=== PATIENT | female | born 1935 | race Hispanic/Latino ===

== ENCOUNTER 2018-09-20 12:19 | Inpatient (IN) | payer MEDICARE, OTHER ==
[~2018-09-20] VITALS: Ht 160 cm; Wt 70.8 kg
[2018-09-20] MEDS ORDERED: ALBUTEROL SULF 0.083% NEB SOLN 3 ML NEB NEB STA (12:33)
[2018-09-20] MEDS ORDERED: IPRATROPIUM BROMIDE 0.02% 2.5 ML NEB NEB STA (12:33)
[2018-09-20] MEDS ORDERED: METHYLPREDNISOLONE SOD SUCC 125 MG/2ML VIAL IV STA (12:33)
--- NOTE | 2018-09-20 13:24 | Diagnostic Imaging Report ---
EXAM: XR CHEST 2 VIEWS DATE: 09/20/2018 12:31 PM INDICATION: Shortness of breath COMPARISON: None FINDINGS: Lines and Tubes: None Heart and Mediastinum: No acute cardiomediastinal findings. Aortic vascular calcifications. Lungs and Pleura: Bibasilar opacities with small effusions. Interstitial prominence. Bones and Soft Tissues: No acute findings. IMPRESSION: 1. Mild volume overload with small effusions. 2. Superimposed basilar atelectasis, with pneumonia not excluded. Signed by: Dr. Jermaine Bautista MD on 09/20/2018 1:21 PM
[2018-09-20 14:45] LABS: BASOPHILS % 0.2 % (0.0-1.0); EOSINOPHILS # (AUTO) 0.1 (0.0-0.4); EOSINOPHILS % 2.2 % (0.0-6.0); HEMATOCRIT 33.3 % (34.2-44.1); HEMOGLOBIN 10.5 g/dL (12.0-16.0); LYMPHOCYTES # (AUTO) 0.7 (1.0-3.2); LYMPHOCYTES % 15.9 % (18.0-39.1); MEAN CORPUSCULAR HEMOGLOBIN 30.1 pg (28-32); MEAN CORPUSCULAR HGB CONC 31.5 g/dL (31-35); MEAN CORPUSCULAR VOLUME 95.4 fL (81-99); MONOCYTES # (AUTO) 0.4 (0.2-0.8); MONOCYTES % 9.7 % (4.4-11.3); NEUTROPHILS % 71.8 % (38.7-80.0); PLATELET COUNT 77 x10e3/uL (140-360); RED BLOOD COUNT 3.49 x10e6/uL (3.6-5.1); RED CELL DISTRIBUTION WIDTH 13.2 % (11.7-14.4)
[2018-09-20 15:06] LABS: ALANINE AMINOTRANSFERASE 16 IU/L (0-55); ALBUMIN 3.5 g/dL (3.5-5.0); ALBUMIN/GLOBULIN RATIO 1.1 (0.8-2.0); ALKALINE PHOSPHATASE 90 IU/L (40-150); ANION GAP 13.1 mmol/L (8-16); BLOOD UREA NITROGEN 8 mg/dL (7-26); BUN/CREATININE RATIO 9 (6-25); CALCIUM 9.4 mg/dL (8.4-10.2); CARBON DIOXIDE 30 mmol/L (22-29); CHLORIDE 101 mmol/L (98-107); CREATINE KINASE 44 IU/L (29-168); CREATININE, SERUM 0.89 mg/dL (0.57-1.11); EST GLOMERULAR FILTRATION RATE > 60 ML/MIN (60-); GLUCOSE 107 mg/dL (74-118); LIPASE 15 U/L (8-78); POTASSIUM 4.1 mmol/L (3.5-5.1); SODIUM 140 mmol/L (136-145)
[2018-09-20 15:39] LABS: INR 1.08
[2018-09-20 15:40] LABS: PARTIAL THROMBOPLASTIN TIME 27.9 seconds (23.8-35.5)
[2018-09-20 16:33] LABS: CLARITY,URINE CLEAR (CLEAR); COLOR,URINE YELLOW (YELLOW)
[2018-09-20 16:34] LABS: BILIRUBIN,URINE NEGATIVE (NEGATIVE); KETONES,URINE NEGATIVE (NEGATIVE); LEUKOCYTE ESTERASE ,URINE 1+ (NEGATIVE); NITRITE,URINE NEGATIVE (NEGATIVE); PROTEIN,URINE DIPSTICK NEGATIVE (NEGATIVE); URINE UROBILINOGEN 0.2 mg/dL (0.2 - 1)
[2018-09-20] MEDS ORDERED: FUROSEMIDE INJ 10 MG/ML 4 ML VIAL IV ONE (16:45)
[2018-09-20 16:56] LABS: EPITHELIAL CELLS,URINE MANY /LPF
[2018-09-20] MEDS ORDERED: SODIUM CHLORIDE FLUSH 10 ML SYR INJ PRN (17:00)
[2018-09-20 17:04] LABS: RBC,URINE 0-5 /HPF (0-5); TRANSITIONAL EPI CELLS,URINE MODERATE; WBC,URINE (MAN) 21-50 /HPF (0-5)
[2018-09-20 17:07] LABS: BACTERIA,URINE RARE /HPF
--- NOTE | 2018-09-20 17:11 | NUR ---
PT/FAMILY UPDATED ON PENDING ADMIT TO HOSPITAL. DINNER TRAY ORDERED FOR THIS PATIENT
--- NOTE | 2018-09-20 18:11 | NUR ---
REPORTED OFF TO MILLI CARMEN FOR CONTINUITY OF CARE
[2018-09-20 18:16] VITALS: BP 167/73
[2018-09-20 18:20] VITALS: BP 157/84
--- OUTSIDE RECORDS SUMMARY | 2018-09-20 18:42 | XMS REPORT ---
Author Author [facility] Address Unknown Phone Unavailable Care Team Providers Care End Polisher Name Role Phone Andre KNAPP Unavailable Unavailable Problems This patient has no known problems. Allergies, Adverse Reactions, Alerts This patient has no known allergies or adverse reactions. Medications This patient has no known medications. Results Test Description Test Time Test Comments Text Results Atomic Results Result Comments CHEST 2 VIEWS 2018-09-20 13:20:00 [place] [id number] Patient Name: JEN RICHARDS MR #: [id number] : 1935 Age/Sex: 82/F Req #: [id number] Adm Physician: Ordered by: JESUS SOLIS COARSE WIRE DRAWER Report #: [id number] Location: ER Room/Bed: Procedure: [id number] DX/CHEST 2 VIEWS Exam Date: 09/20/18 Exam Time: 1300 REPORT STATUS: Signed EXAM: XR CHEST 2 VIEWS DATE: 09/20/2018 12:31 PM INDICATION: Shortness of breath COMPARISON: None FINDINGS: Lines and Tubes: None Heart and Mediastinum: No acute cardiomediastinal findings. Aortic vascular calcifications. Lungs and Pleura: Bibasilar opacities with small effusions. Interstitial prominence. Bones and Soft Tissues: No acute findings. IMPRESSION: 1. Mild volume overload with small effusion s. 2. Superimposed basilar atelectasis, with pneumonia not excluded. Signed by: Dr. Jermaine Bautista MD on 09/20/2018 1:21 PM Dictated By: JERMAINE BAUTISTA MD 1321 Transcribed By: LUIS on 09/20/18 1321 COPY TO: JESUS SOLIS NP
--- NOTE | 2018-09-20 19:21 | NUR ---
PT TO BE ADMITTED TO [facility] 209. PULSE OX/NO TELE
[2018-09-20 20:00] VITALS: BP 169/71
--- NOTE | 2018-09-20 20:00 | NUR ---
RECEIVED PT FROM ER VIA STRETCHER. AAOX3. ABLE TO AMB WITH STAND BY ASSIST TO BEDSIDE COMMODE. NO RESP DISTRESS. ON N/C 2L WITH CONTINUOS PULSE OX 98%. DENIES PAIN AT THIS TIME. HAS MULTIPLY BRUISING TO BOTH UPPER EXT. DENIES FALLS. ORIENTED TO ROOM. CALL LIGHT WITHIN REACH AND INSTRUCTED TO CALL FOR ASSISTANCE. BED ALARM ON.
[2018-09-20 20:42] VITALS: BP 169/71
[2018-09-20] MEDS ORDERED: PANTOPRAZOLE SO40 MG PO (22:19)
[2018-09-20] MEDS ORDERED: POTASSIUM CHLO10 ME1 PO (22:19)
[2018-09-20] MEDS ORDERED: CARDIZEM60 MG (22:19)
[2018-09-20] MEDS ORDERED: ADVAIR 250-501 EACH (22:19)
[2018-09-20] MEDS ORDERED: COMBIVENT RESPIM4 GM IH (22:19)
[2018-09-20] MEDS ORDERED: LEVOTHYROXINE50 MCG PO (22:28)
[2018-09-20] MEDS ORDERED: FUROSEMIDE20 MG (22:28)
[2018-09-20] MEDS ORDERED: CARVEDILOL12.5 MG PO (22:28)
[2018-09-20 23:17] VITALS: BP 169/71
[2018-09-21] VITALS (9 sets, daily range): BP systolic 147–181; BP diastolic 61–93
--- NOTE | 2018-09-21 05:00 | NUR ---
ELEVATED BP. NOTIFIED.
[2018-09-21] MEDS ORDERED: ALBUTEROL/IPRATROPIUM 3 ML NEB NEB PRN (05:15)
[2018-09-21 05:49] LABS: CREATINE KINASE 52 IU/L (29-168)
[2018-09-21] MEDS ORDERED: HYDRALAZINE HCL 20 MG/ML VIAL IV PRN (06:30)
[2018-09-21] MEDS: LEVOTHYROXINE SODIUM 50 MCG TAB PO SCH (06:34)
[2018-09-21] MEDS: CEFTRIAXONE SOD 1 GM VIAL IV SCH (06:34)
[2018-09-21] MEDS: NAPROXEN 250 MG TAB PO PRN (06:35)
[2018-09-21] MEDS: ALBUTEROL/IPRATROPIUM 3 ML NEB NEB SCH ×5 (07:00→23:15)
[2018-09-21] MEDS: SALMETEROL/FLUTICASONE 250/50 INH SCH ×2 (07:00→19:55)
--- NOTE | 2018-09-21 07:10 | NUR ---
RCD PT AT BED PT IS ALERT AND ORIENTED RESTING ON BED NO SIGNS OF ANY DISTRESS NOTED IV PATENT BED LOW AND LOCKED CALL LIGHT IN REACH
[2018-09-21] MEDS: PANTOPRAZOLE SOD 40 MG TABEC PO SCH (09:00)
[2018-09-21] MEDS: CARVEDILOL 12.5 MG TAB PO SCH ×2 (09:00→17:00)
[2018-09-21] MEDS: POTASSIUM CHLORIDE 10MEQ EA PO SCH (09:00)
[2018-09-21] MEDS: FUROSEMIDE INJ 10 MG/ML 4 ML VIAL IV SCH (09:00)
--- NOTE | 2018-09-21 12:53 | NUR ---
Entry Level Staff Accountant to bedside to discuss plan of care with patient/family. CM/SW role and care transitions discussed. Anticipated discharge plan discussed along with duration of care. CM/SW discussed patients right to make decisions in care. CM/SW work hours given. Patient lives: with granddaughter Lianne Admit/Transfer: thru ED, from home POA/Emergency contact: Lianne Ward [phone] Current/Previous Home Health: none PCP/Follow-up Care: Dr. Galindo Current/Previous DME: home oxygen, has walker and wheelchair Other Services: none; but inquiring about provider services. CM provided pamphlets from provider services and gave senior resource guide Employment Status: retired Areas of Concerns: none Referral Needs: none Education Needs: none IMM/ROSARIO given and signed (if applicable): none Goal for discharge: Home with family; family will provide transportation CM/SW left business card at the bedside with contact information. Name and number was also written on the patients whiteboard. Patient verbalized understanding of discussion. CM will follow-up with ongoing discharge and transition of care needs.
[2018-09-21 13:44] LABS: CREATINE KINASE 72 IU/L (29-168)
[2018-09-21] MEDS ORDERED: METHYLPREDNISOLONE SOD SUCC 40 MG/ML VIAL IV SCH (14:00)
[2018-09-21] MEDS: DOXYCYCLINE HYCLATE TABLET 100 MG TAB PO SCH (15:45)
[2018-09-21 16:20] LABS: FREE THYROXINE INDEX 3.8624 (1.4-3.8); THYROID STIMULATING HORMONE 0.304 uIU/mL (0.350-4.940)
--- NOTE | 2018-09-21 16:23 | Consultation ---
DATE OF CONSULTATION: September 21, 2018 PULMONARY CONSULTATION An 82-year-old woman approximately 5 days prior to admission with cough productive of purulent sputum. Swelling of the lower extremities, progressive shortness of breath despite supplemental oxygen, and worse at night. Usually, she is able to walk around the house by herself, but in the last few days. She has a history of severe COPD and emphysema. She has oxygen at home. ALLERGIES: THERE IS NO KNOWN ALLERGIES. She smoked a pack a day for 60 years. Quit 5 years ago. 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 Born in [place]. FAMILY HISTORY: Positive for diabetes and cancer of stomach and ovary. MEDICATIONS: Her medications have included Lasix, potassium, Coreg, Levoxyl, Protonix, Combivent, Spiriva, and Advair. She has had T and A and vocal cord polyp removed. PHYSICAL EXAMINATION GENERAL: This is a well-developed white female looking her stated age. HEENT: Head is normocephalic and atraumatic. Eyes: Extraocular movements intact. VITALS: Temperature 98.2, blood pressure 168/71, respirations 18. CHEST: Wheezing in all lung gallegos. Tenderness of left chest and lower 11th rib. HEART: Regular rhythm. ABDOMEN: Nontender. EXTREMITIES: Edematous. IMPRESSION 1. Possible cough fracture. 2. Congestive heart failure. 3. Acute exacerbation of severe chronic obstructive pulmonary disease. Code status was discussed. PLAN: Cautious diuresis. Moderate dose of corticosteroids. Empiric antibiotics. Chest x-ray suggestive of pneumonia, as well as congestive heart failure with bilateral small effusions and infiltrates. Thank you for this kind referral. Job#: [id number] LIZ MUNGUIA
--- NOTE | 2018-09-21 17:46 | NUR ---
PATIENT REFUSED ABG
--- NOTE | 2018-09-21 17:50 | NUR ---
PT REQUESTED ASPIRIN FOR PAIN PAGED DR MERINO TO GET THE ORDERS BECAUSE PT REQUESTED WHEN HE CAME TO SEE THE PT
--- NOTE | 2018-09-21 18:11 | NUR ---
DR MERINO RETURNED CALL AND GOT THE ORDERS
[2018-09-21] MEDS: ASPIRIN 325 MG TAB PO PRN (18:29)
--- NOTE | 2018-09-21 18:39 | NUR ---
PT RESTING ON BED BED SIDE REPORT GIVEN TO ONCOMING NURSE
[2018-09-21] MEDS ORDERED: SALINE 0.65% NAS SOLN 1 SPRAY BTL PRN (20:45)
[2018-09-21] MEDS: HEPARIN SOD (PORCINE) 5,000 UNIT/ML VIAL SC SCH (21:00)
[2018-09-22] VITALS (8 sets, daily range): BP systolic 145–161; BP diastolic 71–86
[2018-09-22] MEDS: ALBUTEROL/IPRATROPIUM 3 ML NEB NEB SCH ×6 (03:00→23:30)
[2018-09-22] MEDS: CEFTRIAXONE SOD 1 GM VIAL IV SCH (05:45)
[2018-09-22] MEDS: LEVOTHYROXINE SODIUM 50 MCG TAB PO SCH (05:45)
[2018-09-22] MEDS: SALMETEROL/FLUTICASONE 250/50 INH SCH ×2 (07:16→19:55)
[2018-09-22] MEDS ORDERED: METHYLPREDNISOLONE SOD SUCC 40 MG/ML VIAL IV SCH (08:00)
[2018-09-22] MEDS: NAPROXEN 250 MG TAB PO PRN ×2 (08:02→21:11)
[2018-09-22] MEDS: DOXYCYCLINE HYCLATE TABLET 100 MG TAB PO SCH (09:00)
[2018-09-22] MEDS: POTASSIUM CHLORIDE 10MEQ EA PO SCH (09:00)
[2018-09-22] MEDS: HEPARIN SOD (PORCINE) 5,000 UNIT/ML VIAL SC SCH ×2 (09:00→21:12)
[2018-09-22] MEDS: PANTOPRAZOLE SOD 40 MG TABEC PO SCH (09:00)
[2018-09-22] MEDS: CARVEDILOL 12.5 MG TAB PO SCH ×2 (09:00→16:55)
[2018-09-22] MEDS: FUROSEMIDE INJ 10 MG/ML 4 ML VIAL IV SCH (09:00)
--- NOTE | 2018-09-22 09:00 | NUR ---
The pt. comp/of pain in the right shoulder and was medicated with naproxen. Dr. Jimenez visited and new orders received and recorded.
--- NOTE | 2018-09-22 10:24 | Diagnostic Imaging Report ---
PROCEDURE:X-RAY RIGHT SHOULDER, COMPLETE COMPARISON:None. INDICATIONS:RIGHT SHOULDER PAIN FINDINGS: There are severe right glenohumeral joint degenerative changes with bone on bone contact. There are mild degenerative changes at the right glenohumeral joint. No evidence of fracture, malalignment, or soft tissue abnormality. 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 No acute radiographic abnormality. Dictated by: MORGAN ROCHA M.D. on 09/22/2018 at 10:34 Electronically approved by: MORGAN ROCHA M.D. on 09/22/2018 at 10:34
--- NOTE | 2018-09-22 19:25 | NUR ---
Received awake on bed, alert, not in distress, still complaining of pain to the right shoulder, Lidocaine patch in place. Call light within reached, advised to call for assistance when needed. Bed in low position and locked, bed alarm on, will continue to monitor
[2018-09-23] VITALS (8 sets, daily range): BP systolic 141–183; BP diastolic 63–99
[2018-09-23] MEDS: ALBUTEROL/IPRATROPIUM 3 ML NEB NEB SCH ×6 (03:00→23:00)
[2018-09-23] MEDS: LEVOTHYROXINE SODIUM 50 MCG TAB PO SCH (06:00)
[2018-09-23] MEDS: CEFTRIAXONE SOD 1 GM VIAL IV SCH (06:00)
[2018-09-23] MEDS: NAPROXEN 250 MG TAB PO PRN (06:25)
--- NOTE | 2018-09-23 07:15 | NUR ---
RCD PT AT BED PT IS ALERT AND ORIENTED RESTING ON BED NO SIGNS OF ANY DISTRESS NOTED IV PATENT FAMILY AT BED SIDE BED LOW AND LOCKED CALL LIGHT IN REACH
[2018-09-23] MEDS ORDERED: METHYLPREDNISOLONE SOD SUCC 40 MG/ML VIAL IV SCH (07:30)
[2018-09-23] MEDS: SALMETEROL/FLUTICASONE 250/50 INH SCH ×2 (07:58→19:44)
[2018-09-23] MEDS: HEPARIN SOD (PORCINE) 5,000 UNIT/ML VIAL SC SCH ×2 (09:00→21:10)
[2018-09-23] MEDS: PANTOPRAZOLE SOD 40 MG TABEC PO SCH (09:00)
[2018-09-23] MEDS: DOXYCYCLINE HYCLATE TABLET 100 MG TAB PO SCH (09:00)
[2018-09-23] MEDS: FUROSEMIDE INJ 10 MG/ML 4 ML VIAL IV SCH (09:00)
[2018-09-23] MEDS: CARVEDILOL 12.5 MG TAB PO SCH ×2 (09:00→17:00)
[2018-09-23] MEDS: POTASSIUM CHLORIDE 10MEQ EA PO SCH (09:00)
[2018-09-23] MEDS: LIDOCAINE 5% PATCH TP SCH (09:00)
[2018-09-23] MEDS: ASPIRIN 325 MG TAB PO PRN (16:30)
--- NOTE | 2018-09-23 18:41 | NUR ---
PT RESTING ON BED BED SIDE REPORT GIVEN TO ONCOMING NURSE
--- NOTE | 2018-09-23 19:28 | NUR ---
Patient received sitting up in bed. Family at bedside. AAO x 3. No complaints of pain. Patient on 2 L NC . Respirations even and non-labored. Bed locked and in lowest position. Bed rails up x 2. Patient instructed to call for assistance when needed. Call light within reach.
[2018-09-24] VITALS (8 sets, daily range): BP systolic 127–176; BP diastolic 59–89
[2018-09-24] MEDS: ALBUTEROL/IPRATROPIUM 3 ML NEB NEB SCH ×6 (03:00→23:17)
[2018-09-24 05:44] LABS: BASOPHILS % 0.1 % (0.0-1.0); HEMATOCRIT 34.2 % (34.2-44.1); HEMOGLOBIN 11.2 g/dL (12.0-16.0); LYMPHOCYTES # (AUTO) 0.6 (1.0-3.2); LYMPHOCYTES % 7.2 % (18.0-39.1); MEAN CORPUSCULAR HEMOGLOBIN 29.5 pg (28-32); MEAN CORPUSCULAR HGB CONC 32.7 g/dL (31-35); MONOCYTES % 11.7 % (4.4-11.3); NEUTROPHILS % 80.5 % (38.7-80.0); PLATELET COUNT 80 x10e3/uL (140-360); RED CELL DISTRIBUTION WIDTH 12.5 % (11.7-14.4)
[2018-09-24 06:12] LABS: ANION GAP 15.1 mmol/L (8-16); CALCIUM 8.5 mg/dL (8.4-10.2); CREATININE, SERUM 1.14 mg/dL (0.57-1.11); POTASSIUM 4.1 mmol/L (3.5-5.1)
[2018-09-24] MEDS: CEFTRIAXONE SOD 1 GM VIAL IV SCH (06:15)
[2018-09-24] MEDS: SALMETEROL/FLUTICASONE 250/50 INH SCH ×2 (07:00→19:34)
--- NOTE | 2018-09-24 07:02 | NUR ---
Received patient mid fowlers position, side rails upx2, call light within reach, family member at bedside. AAOX3 to time, person, place. Respirations even and unlabored. O2 2L NC. On continuous SPO2 92%. Instructed patient to use call light for assistance. Voiced understanding.
[2018-09-24] MEDS: LIDOCAINE 5% PATCH TP SCH (07:40)
[2018-09-24] MEDS: PANTOPRAZOLE SOD 40 MG TABEC PO SCH (07:40)
[2018-09-24] MEDS: LEVOTHYROXINE SODIUM 50 MCG TAB PO SCH (07:40)
[2018-09-24] MEDS: HEPARIN SOD (PORCINE) 5,000 UNIT/ML VIAL SC SCH ×2 (07:40→19:59)
[2018-09-24] MEDS: METHYLPREDNISOLONE SOD SUCC 40 MG/ML VIAL IV SCH (07:40)
[2018-09-24] MEDS: DOXYCYCLINE HYCLATE TABLET 100 MG TAB PO SCH (07:40)
[2018-09-24] MEDS: CARVEDILOL 12.5 MG TAB PO SCH ×2 (07:40→16:34)
[2018-09-24] MEDS: POTASSIUM CHLORIDE 10MEQ EA PO SCH (07:40)
[2018-09-24] MEDS: FUROSEMIDE INJ 10 MG/ML 4 ML VIAL IV SCH (07:40)
--- NOTE | 2018-09-24 18:29 | NUR ---
Resting in bed. No s/s of acute distress noted. Report to be given to oncoming nurse.
--- NOTE | 2018-09-24 19:25 | NUR ---
Received patient awake on bed, on semi fowlers position, on O2 support via nasal cannula at 2l, on continues pulse Ox, sat at 97%. Call light within reached, advised to call for assistance when needed. Bed alarm on, bed in low position and locked, will continue to monitor.
[2018-09-24] MEDS: NAPROXEN 250 MG TAB PO PRN (19:58)
[2018-09-25] VITALS (8 sets, daily range): BP systolic 132–162; BP diastolic 59–68
[2018-09-25] MEDS: NAPROXEN 250 MG TAB PO PRN (02:30)
[2018-09-25] MEDS: ALBUTEROL/IPRATROPIUM 3 ML NEB NEB SCH ×6 (03:08→23:00)
[2018-09-25] MEDS: CEFTRIAXONE SOD 1 GM VIAL IV SCH (06:02)
[2018-09-25] MEDS: TRAMADOL HCL 50 MG TAB PO PRN (06:04)
--- NOTE | 2018-09-25 07:00 | NUR ---
SHIFT REPORT RECEIVED FROM NIGHT RN. PT DENIES NEEDS AT THIS TIME.
[2018-09-25] MEDS: SALMETEROL/FLUTICASONE 250/50 INH SCH ×2 (07:37→19:10)
[2018-09-25] MEDS: FUROSEMIDE INJ 10 MG/ML 4 ML VIAL IV SCH (08:37)
[2018-09-25] MEDS: LEVOTHYROXINE SODIUM 50 MCG TAB PO SCH (08:37)
[2018-09-25] MEDS: METHYLPREDNISOLONE SOD SUCC 40 MG/ML VIAL IV SCH (08:37)
[2018-09-25] MEDS: LIDOCAINE 5% PATCH TP SCH (08:38)
[2018-09-25] MEDS: DOXYCYCLINE HYCLATE TABLET 100 MG TAB PO SCH (08:38)
[2018-09-25] MEDS: PANTOPRAZOLE SOD 40 MG TABEC PO SCH (08:38)
[2018-09-25] MEDS: POTASSIUM CHLORIDE 10MEQ EA PO SCH (08:39)
[2018-09-25] MEDS: CARVEDILOL 12.5 MG TAB PO SCH ×2 (08:40→16:38)
[2018-09-25] MEDS: HEPARIN SOD (PORCINE) 5,000 UNIT/ML VIAL SC SCH ×2 (08:42→21:00)
[2018-09-26] VITALS (7 sets, daily range): BP systolic 128–161; BP diastolic 59–69
[2018-09-26] MEDS: TRAMADOL HCL 50 MG TAB PO PRN (02:35)
[2018-09-26] MEDS: ALBUTEROL/IPRATROPIUM 3 ML NEB NEB SCH ×5 (02:50→19:20)
[2018-09-26] MEDS: LEVOTHYROXINE SODIUM 25 MCG TABLET PO SCH (06:07)
[2018-09-26] MEDS: CEFTRIAXONE SOD 1 GM/NS 50 ML 50 ML IV SCH (06:07)
--- NOTE | 2018-09-26 07:00 | NUR ---
SHIFT REPORT RECEIVED FROM NIGHT RN. PT DENIES NEEDS AT THIS TIME.
[2018-09-26] MEDS: FUROSEMIDE INJ 10 MG/ML 4 ML VIAL IV SCH (08:40)
[2018-09-26] MEDS: SALMETEROL/FLUTICASONE 250/50 INH SCH ×2 (08:40→08:46)
[2018-09-26] MEDS: METHYLPREDNISOLONE SOD SUCC 40 MG/ML VIAL IV SCH (08:40)
[2018-09-26] MEDS: LIDOCAINE 5% PATCH TP SCH (08:41)
[2018-09-26] MEDS: CARVEDILOL 12.5 MG TAB PO SCH ×2 (08:41→17:39)
[2018-09-26] MEDS: PANTOPRAZOLE SOD 40 MG TABEC PO SCH (08:41)
[2018-09-26] MEDS: POTASSIUM CHLORIDE 10MEQ EA PO SCH (08:41)
[2018-09-26] MEDS: DOXYCYCLINE HYCLATE TABLET 100 MG TAB PO SCH (08:41)
[2018-09-26] MEDS: HEPARIN SOD (PORCINE) 5,000 UNIT/ML VIAL SC SCH ×2 (08:43→20:45)
[2018-09-26] MEDS ORDERED: ONDANSETRON HCL INJ 2 MG/ML VIAL IV PRN (11:30)
--- NOTE | 2018-09-26 12:30 | NUR ---
PT NAUSEATED. RECEIVED ORDER FOR ZOFRAN. PT IS STILL REFUSING TO WORK WITH PT.
--- NOTE | 2018-09-26 18:13 | NUR ---
Nutrition Screen Note RD Recommendation for Physician: -Continue cardiac diet as ordered -RD educated on fluids restriction 09/26 Plan of Care: RD following, monitoring for tolerance and adequacy Nutrition reason for involvement: LOS Primary Diagnose(s): CHF, dyspnea, acute exacerbation of COPD PMH: severe COPD and emphysema Ht: 63in Wt: 151.13lb BMI: kg/m2 IBW: 115lb RD Assessment: (09/26) Chart reviewed. Labs and meds reviewed. 82 yo F, who is admitted for cough. During my visit, pt reports not eating good due to taste preferences. Pt doesnt like hospital foods but RN recorded ~75-100% PO intake. Family also has been bringing her foods from home. Pt reports of some nausea and Zofran was given. No other GI complains noted. LBM 09/25. Pt denies any chewing or swallowing difficulty. Currently on 1.5 L fluids restriction. Educated pt on fluids restriction. Will continue to monitor and follow. Current Diet: cardiac diet Malnutrition Evaluation (09/26) The patient does not meet criteria for a specified degree of malnutrition at this time. Will re-evaluate at follow-up as appropriate. Diet Education Needs Assessment: Diet education indicated, pt is agreeable. Learner(s): pt Barriers: n/a Cultural/Language Modifications: n/a Readiness: ready Method: explanations, handout Topics: Fluid restriction Understanding/Compliance: Understood. All questions have been answered. Nutrition Care Level: low
[2018-09-27] VITALS (8 sets, daily range): BP systolic 150–177; BP diastolic 65–98
[2018-09-27] MEDS: ALBUTEROL/IPRATROPIUM 3 ML NEB NEB SCH ×7 (00:50→21:15)
[2018-09-27] MEDS: LEVOTHYROXINE SODIUM 25 MCG TABLET PO SCH (05:56)
[2018-09-27] MEDS: CEFTRIAXONE SOD 1 GM/NS 50 ML 50 ML IV SCH (05:56)
[2018-09-27] MEDS: SALMETEROL/FLUTICASONE 250/50 INH SCH ×2 (07:00→21:15)
[2018-09-27] MEDS: CARVEDILOL 12.5 MG TAB PO SCH ×2 (09:59→16:33)
[2018-09-27] MEDS: METHYLPREDNISOLONE SOD SUCC 40 MG/ML VIAL IV SCH (09:59)
[2018-09-27] MEDS: FUROSEMIDE INJ 10 MG/ML 4 ML VIAL IV SCH (09:59)
[2018-09-27] MEDS: HEPARIN SOD (PORCINE) 5,000 UNIT/ML VIAL SC SCH ×2 (10:00→22:30)
[2018-09-27] MEDS: POTASSIUM CHLORIDE 10MEQ EA PO SCH (10:03)
[2018-09-27] MEDS: DOXYCYCLINE HYCLATE TABLET 100 MG TAB PO SCH (10:04)
[2018-09-27] MEDS: PANTOPRAZOLE SOD 40 MG TABEC PO SCH (10:04)
[2018-09-27] MEDS: LIDOCAINE 5% PATCH TP SCH (10:04)
--- NOTE | 2018-09-27 19:20 | NUR ---
Received awake on bed, not in distress, call light within reached, advised to call for assistance when needed, patient verbalized understanding. Patient is positive for pseudomonas of the sputum, no need for Isolation per solder deposit operator per dayshift. Will continue to monitor
--- NOTE | 2018-09-27 20:15 | NUR ---
Dr. Cleveland seen patient, informed of positive pseudomonas in the sputum with orders
[2018-09-27] MEDS ORDERED: SODIUM CHLORIDE 0.9% 250ML 250 ML ONE (21:56)
[2018-09-27] MEDS ORDERED: CEFEPIME HCL 2 GM VIAL IV SCH (22:00)
[2018-09-27] MEDS: TRAMADOL HCL 50 MG TAB PO PRN (22:30)
[2018-09-27] MEDS: CEFEPIME 2 GM/NS 0.9% 100 ML 100 ML IV SCH (22:30)
[2018-09-28] VITALS (7 sets, daily range): BP systolic 97–137; BP diastolic 56–69
[2018-09-28] MEDS: ALBUTEROL/IPRATROPIUM 3 ML NEB NEB SCH ×5 (03:00→20:08)
[2018-09-28] MEDS: LEVOTHYROXINE SODIUM 25 MCG TABLET PO SCH (05:45)
[2018-09-28 06:28] LABS: EOSINOPHILS % 0.3 % (0.0-6.0); HEMATOCRIT 33.4 % (34.2-44.1); HEMOGLOBIN 10.9 g/dL (12.0-16.0); LYMPHOCYTES # (AUTO) 0.9 (1.0-3.2); LYMPHOCYTES % 12.4 % (18.0-39.1); MEAN CORPUSCULAR HEMOGLOBIN 29.6 pg (28-32); MEAN CORPUSCULAR HGB CONC 32.6 g/dL (31-35); MEAN CORPUSCULAR VOLUME 90.8 fL (81-99); MONOCYTES # (AUTO) 0.8 (0.2-0.8); MONOCYTES % 11.7 % (4.4-11.3); NEUTROPHILS # (AUTO) 5.1 (2.1-6.9); NEUTROPHILS % 74.6 % (38.7-80.0); PLATELET COUNT 109 x10e3/uL (140-360); RED BLOOD COUNT 3.68 x10e6/uL (3.6-5.1); RED CELL DISTRIBUTION WIDTH 12.4 % (11.7-14.4)
[2018-09-28 06:53] LABS: ALBUMIN 3.1 g/dL (3.5-5.0); ALBUMIN/GLOBULIN RATIO 1.2 (0.8-2.0); ANION GAP 14.8 mmol/L (8-16); CALCIUM 8.8 mg/dL (8.4-10.2); CREATININE, SERUM 1.07 mg/dL (0.57-1.11); POTASSIUM 4.8 mmol/L (3.5-5.1)
[2018-09-28] MEDS: SALMETEROL/FLUTICASONE 250/50 INH SCH (07:30)
[2018-09-28] MEDS: METHYLPREDNISOLONE SOD SUCC 40 MG/ML VIAL IV SCH (09:25)
[2018-09-28] MEDS: FUROSEMIDE INJ 10 MG/ML 4 ML VIAL IV SCH (09:25)
[2018-09-28] MEDS: POTASSIUM CHLORIDE 10MEQ EA PO SCH (09:26)
[2018-09-28] MEDS: LIDOCAINE 5% PATCH TP SCH (09:26)
[2018-09-28] MEDS: PANTOPRAZOLE SOD 40 MG TABEC PO SCH (09:26)
[2018-09-28] MEDS: CARVEDILOL 12.5 MG TAB PO SCH ×2 (09:26→17:15)
[2018-09-28] MEDS: DOXYCYCLINE HYCLATE TABLET 100 MG TAB PO SCH (09:26)
[2018-09-28] MEDS: HEPARIN SOD (PORCINE) 5,000 UNIT/ML VIAL SC SCH (10:00)
[2018-09-28] MEDS ORDERED: ALBUTEROL/IPRATROPIUM 3 ML NEB NEB SCH (12:00)
--- NOTE | 2018-09-28 15:30 | NUR ---
Spoke with Dr. Galindo along with CM Director regarding plan of care. He stated he will discuss LTAC vs SNF with pt in AM when he rounds.
--- NOTE | 2018-09-28 19:25 | NUR ---
Received patient awake on bed, on O2 at 2L via NC, not in distress, no complaints of pain at this time. Call light within reached, advised to call for assistance as needed. Will continue to monitor
[2018-09-28] MEDS: CEFEPIME 2 GM/NS 0.9% 100 ML 100 ML IV SCH (20:54)
[2018-09-28] MEDS: TRAMADOL HCL 50 MG TAB PO PRN (20:54)
[2018-09-29] VITALS (9 sets, daily range): BP systolic 117–140; BP diastolic 61–71
[2018-09-29] MEDS: SALMETEROL/FLUTICASONE 250/50 INH SCH ×3 (00:45→19:00)
[2018-09-29] MEDS: ALBUTEROL/IPRATROPIUM 3 ML NEB NEB SCH ×4 (00:45→19:00)
[2018-09-29] MEDS: LEVOTHYROXINE SODIUM 25 MCG TABLET PO SCH (05:47)
[2018-09-29] MEDS: TRAMADOL HCL 50 MG TAB PO PRN (05:47)
[2018-09-29] MEDS: CARVEDILOL 12.5 MG TAB PO SCH ×2 (08:15→17:00)
[2018-09-29] MEDS: PANTOPRAZOLE SOD 40 MG TABEC PO SCH (08:15)
[2018-09-29] MEDS: POTASSIUM CHLORIDE 10MEQ EA PO SCH (08:15)
[2018-09-29] MEDS: METHYLPREDNISOLONE SOD SUCC 40 MG/ML VIAL IV SCH (08:15)
[2018-09-29] MEDS: FUROSEMIDE 20 MG TAB PO SCH (08:15)
[2018-09-29 09:57] LABS: BASOPHILS % 0.2 % (0.0-1.0); EOSINOPHILS # (AUTO) 0.1 (0.0-0.4); HEMATOCRIT 31.6 % (34.2-44.1); HEMOGLOBIN 10.2 g/dL (12.0-16.0); LYMPHOCYTES # (AUTO) 0.9 (1.0-3.2); LYMPHOCYTES % 15.3 % (18.0-39.1); MEAN CORPUSCULAR HEMOGLOBIN 29.6 pg (28-32); MEAN CORPUSCULAR HGB CONC 32.3 g/dL (31-35); MEAN CORPUSCULAR VOLUME 91.6 fL (81-99); MONOCYTES # (AUTO) 0.8 (0.2-0.8); MONOCYTES % 12.7 % (4.4-11.3); NEUTROPHILS # (AUTO) 4.1 (2.1-6.9); NEUTROPHILS % 69.4 % (38.7-80.0); PLATELET COUNT 85 x10e3/uL (140-360); RED BLOOD COUNT 3.45 x10e6/uL (3.6-5.1); RED CELL DISTRIBUTION WIDTH 12.4 % (11.7-14.4)
[2018-09-29] MEDS: LIDOCAINE 5% PATCH TP SCH (10:00)
[2018-09-29 10:25] LABS: ALBUMIN 2.7 g/dL (3.5-5.0); ALBUMIN/GLOBULIN RATIO 1.2 (0.8-2.0); ANION GAP 13.2 mmol/L (8-16); CALCIUM 8.8 mg/dL (8.4-10.2); CREATININE, SERUM 1.04 mg/dL (0.57-1.11); POTASSIUM 4.2 mmol/L (3.5-5.1)
--- NOTE | 2018-09-29 16:00 | NUR ---
Dr. Cristofer husaining
--- NOTE | 2018-09-29 16:13 | NUR ---
SPOKE WITH PATIENT ABOUT SNF CHOICE. SHE STATES SHE WANTS TO GO TO THE ONE IN HER NEIGHBORHOOD, DOWN [address] FROM THE POST OFFICE AND BY THE [facility]IN[facility]. CALLED [facility] [phone] WAS TOLD ADMISSION TEAM HAS ALREADY LEFT TODAY AND WILL NOT RETURN UNTIL TUESDAY. WAS TOLD FAX CLINICALS ON TUESDAY TO [phone].
--- NOTE | 2018-09-29 17:49 | NUR ---
hr 50s; coreg not administered
[2018-09-29] MEDS: CEFEPIME 2 GM/NS 0.9% 100 ML 100 ML IV SCH (21:41)
[2018-09-30] VITALS (7 sets, daily range): BP systolic 86–156; BP diastolic 53–70
[2018-09-30] MEDS: ALBUTEROL/IPRATROPIUM 3 ML NEB NEB SCH ×4 (01:00→19:25)
[2018-09-30] MEDS: LEVOTHYROXINE SODIUM 25 MCG TABLET PO SCH (06:01)
[2018-09-30] MEDS: SALMETEROL/FLUTICASONE 250/50 INH SCH ×2 (07:10→19:25)
--- NOTE | 2018-09-30 08:25 | Progress Note ---
DATE: September 30, 2018 SUBJECTIVE: Patient is here for acute exacerbation of COPD and congestive heart failure. Patient is currently doing well, short of breath but not more than usual, and is getting respiratory support with nasal cannula. OBJECTIVE VITAL SIGNS: Temperature is 97.4, blood pressure is 156/70, respirations of 18, and pulse of 78. HEENT: Normocephalic, atraumatic. Pupils are reactive to light and accommodation. CVS: S1, S2 normal. Regular rate and rhythm. LUNGS: Positive for bilateral crackles in the lower bases. Positive for some scattered inspiratory wheezes. EXTREMITIES: No clubbing. Positive for trace edema. LABORATORY VALUES: On 09/29; hemoglobin of 10.2 and hematocrit of 31.6. Chemistry; sodium 125, potassium is 4.2, BUN is 22, and creatinine of 1.04. Urine does show urine rbc's and wbc's. MICROBIOLOGY VALUES: Blood cultures have been negative. Gram-stain sputum grew Pseudomonas aeruginosa and urine culture has been negative too. ASSESSMENT 1. Acute exacerbation of chronic obstructive pulmonary disease, questionable pneumonia. 2. Pneumonia, community-acquired. 3. Hypertension. 4. Hyperlipidemia. 5. Congestive heart failure. 6. Hyponatremia, patient probably with syndrome of inappropriate antidiuretic syndrome. PLAN: Plan is to continue with Lasix, the patient is getting 20 mg daily. The patient is on albuterol and Atrovent treatment. The patient also is on prednisone 20 mg daily for her COPD. 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 We will go ahead and hep-lock the IV and also give her some salt tablets. Further recommendations per clinical course will continue to monitor the patient along with the consultants. Job#: [id number] PSO
[2018-09-30] MEDS: FUROSEMIDE 20 MG TAB PO SCH (09:12)
[2018-09-30] MEDS: PANTOPRAZOLE SOD 40 MG TABEC PO SCH (09:12)
[2018-09-30] MEDS: POTASSIUM CHLORIDE 10MEQ EA PO SCH (09:12)
[2018-09-30] MEDS: LIDOCAINE 5% PATCH TP SCH (09:12)
[2018-09-30] MEDS: CARVEDILOL 12.5 MG TAB PO SCH ×2 (09:12→17:09)
[2018-09-30] MEDS: PREDNISONE 20 MG TAB PO SCH (09:13)
--- NOTE | 2018-09-30 20:22 | NUR ---
Received patient in bed, introduced self to patient, patient is alert and oriented, patient denies any pain at this time, safety and fall precautions maintained as per hospital protocol: bed in lowest position and locked, needed items beside bed and fide villalobos placed within patient reach, patient instructed to use it to call nurses for any assistance needed, patient verbalized understanding. patient is currently stable will continue to monitor.
[2018-09-30] MEDS: CEFEPIME 2 GM/NS 0.9% 100 ML 100 ML IV SCH (22:16)
[2018-10-01] VITALS (7 sets, daily range): BP systolic 117–162; BP diastolic 57–86
[2018-10-01] MEDS: ALBUTEROL/IPRATROPIUM 3 ML NEB NEB SCH ×4 (00:15→20:00)
[2018-10-01 05:30] LABS: BASOPHILS % 0.2 % (0.0-1.0); EOSINOPHILS % 0.3 % (0.0-6.0); HEMATOCRIT 31.7 % (34.2-44.1); HEMOGLOBIN 10.4 g/dL (12.0-16.0); LYMPHOCYTES % 14.7 % (18.0-39.1); MEAN CORPUSCULAR HEMOGLOBIN 29.8 pg (28-32); MEAN CORPUSCULAR HGB CONC 32.8 g/dL (31-35); MEAN CORPUSCULAR VOLUME 90.8 fL (81-99); MONOCYTES % 15.1 % (4.4-11.3); NEUTROPHILS # (AUTO) 4.4 (2.1-6.9); NEUTROPHILS % 67.9 % (38.7-80.0); PLATELET COUNT 87 x10e3/uL (140-360); RED BLOOD COUNT 3.49 x10e6/uL (3.6-5.1); RED CELL DISTRIBUTION WIDTH 12.5 % (11.7-14.4)
[2018-10-01 05:47] LABS: ANION GAP 11.8 mmol/L (8-16); CREATININE, SERUM 0.9 mg/dL (0.57-1.11); POTASSIUM 4.8 mmol/L (3.5-5.1)
--- NOTE | 2018-10-01 06:45 | NUR ---
patient endorsed to next shift for continuity of care.
[2018-10-01] MEDS: LEVOTHYROXINE SODIUM 25 MCG TABLET PO SCH (07:04)
--- NOTE | 2018-10-01 07:21 | NUR ---
PATIENT IN BED RESTING WITH NO RESPIRATORY DISTRESS. O2 IN PLACE VIA N/C, BRUISES TO UPPER EXTREMITIES. DENIED PAIN AT THIS TIME, BED IN LOWER POSITION, CALL LIGHT AT REACH.
[2018-10-01] MEDS: SALMETEROL/FLUTICASONE 250/50 INH SCH ×2 (07:40→20:00)
--- NOTE | 2018-10-01 09:08 | Progress Note ---
DATE:October 01, 2018 SUBJECTIVE: Patient is here for acute COPD exacerbation and pneumonia. Patient currently with shortness of breath, on nasal cannula. Patient with no other complaints. No chest pain. No nausea, vomiting, or diarrhea. OBJECTIVE VITAL SIGNS: Temperature is 96.8, pulse of 84, respirations of 22, blood pressure is 136/59, pulse oximetry 100% on 4 liters of oxygen. HEENT: Normocephalic, atraumatic. Pupils are reactive to light and accommodation. CVS: S1, S2 normal. Distant heart sounds. LUNGS: Decreased air entry in all lung gallegos. Positive for few inspiratory wheezes. ABDOMEN: Nontender, nondistended. EXTREMITIES: No clubbing, no cyanosis, and no edema. MICROBIOLOGY: Grain stain on the sputum grew Pseudomonas aeruginosa. LABORATORY VALUES: Today's hemoglobin is 10.4, hematocrit of 31.7. Chemistries; sodium of 129 and potassium of 4.8. ASSESSMENT 1. Chronic obstructive pulmonary disease exacerbation. Continue with antibiotic. 2. Community-acquired pneumonia. We will continue with antibiotic and also, patient is on steroids. 3. Hypertension. Continue with antihypertensive. 4. Hyperlipidemia. Continue with lipid lowering agents. 5. Hyponatremia secondary to syndrome of inappropriate antidiuretic hormone secretion. Sodium is 129, this is her baseline. We will keep her on it and if needed, we will add sodium tablets to it. Further recommendations per clinical course. 1. Disposition. Patient is waiting a transfer to SNF and this will probably be done tomorrow. Job#: [id number] ARIANA
[2018-10-01] MEDS: CARVEDILOL 12.5 MG TAB PO SCH ×2 (09:26→17:43)
[2018-10-01] MEDS: POTASSIUM CHLORIDE 10MEQ EA PO SCH (09:26)
[2018-10-01] MEDS: PREDNISONE 20 MG TAB PO SCH (09:26)
[2018-10-01] MEDS: PANTOPRAZOLE SOD 40 MG TABEC PO SCH (09:26)
[2018-10-01] MEDS: LIDOCAINE 5% PATCH TP SCH (09:26)
[2018-10-01] MEDS: FUROSEMIDE 20 MG TAB PO SCH (09:26)
--- NOTE | 2018-10-01 11:43 | NUR ---
PATIENT SITTING UP IN BED EATING LUNCH, NO DIFFICULTY SWALLOWING OBSERVED. ASSISTED WITH CUP OPENING. BED IN LOWER POSITION, CALL LIGHT AT REACH. INSTRUCTED TO CALL FOR ASSISTANCE NEEDED.
--- NOTE | 2018-10-01 16:12 | NUR ---
WALKING ROUND MADE. PATIENT IN BED RESTING WITH EYES CLOSED, NO RESPIRATORY DISTRESS OBSERVED. CALL LIGHT AT EASY REACH.
--- NOTE | 2018-10-01 19:10 | NUR ---
BED SIDE REPORT GIVEN TO ON COMING NURSE. PATIENT RESTING IN BED WITH NO S/S OF DISCOMFORT.
--- NOTE | 2018-10-01 19:15 | NUR ---
Received patient in bed, introduced self to patient, patient is alert and oriented x3, patient denies any pain at this time, safety and fall precautions maintained as per hospital protocol: bed in lowest position and locked, needed items beside bed and call vilallobos placed within patient reach, patient instructed to use it to call nurses for any assistance needed, patient verbalized understanding. patient is currently stable will continue to monitor.
[2018-10-01] MEDS: CEFEPIME 2 GM/NS 0.9% 100 ML 100 ML IV SCH (21:08)
[2018-10-02] VITALS (7 sets, daily range): BP systolic 125–157; BP diastolic 51–69
--- NOTE | 2018-10-02 | NUR ---
Received patient in bed, introduced self to patient, patient is alert and oriented x3, patient denies any pain at this time, safety and fall precautions maintained as per hospital protocol: bed in lowest position and locked, needed items beside bed and fide villalobos placed within patient reach, patient instructed to use it to call nurses for any assistance needed, patient verbalized understanding. patient is currently stable will continue to monitor.
[2018-10-02] MEDS: ALBUTEROL/IPRATROPIUM 3 ML NEB NEB SCH ×3 (01:00→13:00)
--- NOTE | 2018-10-02 06:41 | NUR ---
Patient condition throughout the night was stable.
[2018-10-02] MEDS: LEVOTHYROXINE SODIUM 25 MCG TABLET PO SCH (06:42)
--- NOTE | 2018-10-02 07:00 | NUR ---
Bedside rounding completed. The patient is in bed watching TV. She has a nasal cannula with 2 liters of oxygen, she has a PIV, 24 g in her right AC that is fragile. The patient is receiving Merrem every 24 hours. She is being transferred to SNF today.
--- NOTE | 2018-10-02 07:00 | NUR ---
patient endorsed to next shift for continuity of care.
[2018-10-02 07:05] LABS: BASOPHILS % 0.2 % (0.0-1.0); EOSINOPHILS % 0.4 % (0.0-6.0); HEMATOCRIT 34.9 % (34.2-44.1); HEMOGLOBIN 11.4 g/dL (12.0-16.0); LYMPHOCYTES # (AUTO) 1.4 (1.0-3.2); MEAN CORPUSCULAR HEMOGLOBIN 29.8 pg (28-32); MEAN CORPUSCULAR HGB CONC 32.7 g/dL (31-35); MEAN CORPUSCULAR VOLUME 91.1 fL (81-99); MONOCYTES # (AUTO) 1.1 (0.2-0.8); MONOCYTES % 10.5 % (4.4-11.3); NEUTROPHILS # (AUTO) 7.8 (2.1-6.9); NEUTROPHILS % 73.8 % (38.7-80.0); PLATELET COUNT 105 x10e3/uL (140-360); RED BLOOD COUNT 3.83 x10e6/uL (3.6-5.1); RED CELL DISTRIBUTION WIDTH 12.5 % (11.7-14.4)
[2018-10-02] MEDS: SALMETEROL/FLUTICASONE 250/50 INH SCH ×2 (07:05→18:14)
[2018-10-02 07:23] LABS: ANION GAP 12.9 mmol/L (8-16); CALCIUM 9.1 mg/dL (8.4-10.2); CREATININE, SERUM 1.09 mg/dL (0.57-1.11); POTASSIUM 4.9 mmol/L (3.5-5.1)
[2018-10-02 08:44] LABS: LYMPHOCYTES % (MANUAL) 9 % (19-48); METAMYELOCYTES % (MANUAL) 1 % (0-0); MONOCYTES % (MANUAL) 7 % (3.4-9.0); MYELOCYTES % (MANUAL) 1 % (0-0); NEUTROPHILS % (MANUAL) 82 % (40-74); PLATELET ESTIMATE SLIGHTLY DECREASED; PLATELET MORPHOLOGY COMMENT FEW LARGE; RBC MORPHOLOGY COMMENT NORMAL
[2018-10-02] MEDS: CARVEDILOL 12.5 MG TAB PO SCH ×2 (09:51→18:14)
[2018-10-02] MEDS: POTASSIUM CHLORIDE 10MEQ EA PO SCH (09:51)
[2018-10-02] MEDS: FUROSEMIDE 20 MG TAB PO SCH (09:52)
[2018-10-02] MEDS: PREDNISONE 20 MG TAB PO SCH (09:52)
[2018-10-02] MEDS: LIDOCAINE 5% PATCH TP SCH (09:52)
[2018-10-02] MEDS: PANTOPRAZOLE SOD 40 MG TABEC PO SCH (09:52)
--- NOTE | 2018-10-02 11:51 | NUR ---
CM informed Dr. Galindo pt has been accepted for custodial at [facility]. Ok to transfer pt today. Tonya RN notified.
--- NOTE | 2018-10-02 12:00 | NUR ---
The patient is pleasantly interacting and she is able to use the bedside commode with no problems.
--- NOTE | 2018-10-02 13:00 | NUR ---
IMM letter delivered and explained to pt. She verbalized understanding, stated she doesn't think she is discharging too soon. Signed copy placed in chart. Copy to pt.
--- NOTE | 2018-10-02 13:41 | NUR ---
PT ACCEPTED AT [facility] IN [place] GOING TO ROOM [address] KELLIE CEBALLOS. FAXED [facility] FILED DISCHARGE PLAN SUMMARY AND [facility] ON CHART GAVE RTF TO NURSE.
--- NOTE | 2018-10-02 16:00 | NUR ---
The patient has been independent today awaiting the transfer to SNF
[2018-10-02] MEDS: CEFEPIME 2 GM/NS 0.9% 100 ML 100 ML IV SCH (18:15)
--- NOTE | 2018-10-02 18:20 | NUR ---
The patient rec'd her Merrem early because she will miss a dose at the [facility]. She is being transferred via ambulance now.
== END 2018-10-02 19:19 | DRG 871 ==
LOC: ER 12:19 → ERHOLD 18:39 → MED/SURG2 19:54
PROVIDERS: ADMIT Internal Medicine; ATTEND Internal Medicine
DX: A41.52 Sepsis due to Pseudomonas (principal); J18.9 Pneumonia, unspecified organism; J15.1 Pneumonia due to Pseudomonas; J44.1 Chronic obstructive pulmonary disease with (acute) exacerbation; E22.2 Syndrome of inappropriate secretion of antidiuretic hormone; J44.0 Chronic obstructive pulmonary disease with (acute) lower respiratory infection; I11.0 Hypertensive heart disease with heart failure; A41.9 Sepsis, unspecified organism; E78.5 Hyperlipidemia, unspecified; I50.9 Heart failure, unspecified; Z87.891 Personal history of nicotine dependence; R09.02 Hypoxemia; E03.9 Hypothyroidism, unspecified
CPT/HCPCS: 36415; 71046; 80048; 80053; 81001; 82550; 82553; 82805; 83690; 83735; 83880; 84436; 84443; 84479; 84484; 85025; 85610; 85730; 87040; 87070; 87086; 87186; 87205; 87400; 93005; 94640; 97139; 99284; J0360; J0696; J1644; J1940; J2405; J2920; J2930; J7050; J7512